=== PATIENT | female | born 1990 | race Caucasian/White ===

== ENCOUNTER 2017-06-26 14:08 | Emergency (ER) | payer MEDICARE ==
[~2017-06-26] VITALS: Ht 162.6 cm; Wt 81.6 kg
[2017-06-26 14:29] VITALS: BP_SYST 135
[2017-06-26 16:15] VITALS: BP_SYST 130
== END 2017-06-26 16:15 | disposition home or self-care (01) ==
LOC: SED 14:08
DX: J20.9 Acute bronchitis, unspecified (principal); E10.8 Type 1 diabetes mellitus with unspecified complications; R03.0 Elevated blood-pressure reading, without diagnosis of hypertension
CPT/HCPCS: 36415; 82962; 86710; 99284

== ENCOUNTER 2021-06-14 07:39 | Emergency (ER) | payer MEDICAID, MEDICARE ==
[~2021-06-14] VITALS: Ht 160 cm; Wt 81.6 kg
[2021-06-14 07:40] VITALS: BP_SYST 131
[2021-06-14 08:50] LABS: BASOPHILS % (AUTO) 0.6 % (0.0-2.0); EOSINOPHILS # (AUTO) 0.1 K/uL (0.0-0.4); EOSINOPHILS % (AUTO) 1.9 % (0.0-4.0); HEMOGLOBIN 14.5 g/dL (12.0-16.0); LYMPHOCYTES # (AUTO) 2.1 K/uL (1.0-5.5); LYMPHOCYTES % (AUTO) 32.5 % (20.5-51.5); MEAN CORPUSCULAR HEMOGLOBIN 30 pg (27-31); MEAN CORPUSCULAR HGB CONC 34 % (32-36); MEAN CORPUSCULAR VOLUME 86 fL (79.0-98.0); MONOCYTES # (AUTO) 0.4 K/uL (0.0-1.0); MONOCYTES % (AUTO) 6.8 % (1.7-9.3); NEUTROPHILS # (AUTO) 3.7 K/uL (1.8-7.7); NEUTROPHILS % (AUTO) 58.2 % (40.0-70.0); PLATELET COUNT (AUTO) 194 K/uL (130-430); RED BLOOD CELL COUNT(AUTO) 4.87 MIL/uL (4.2-6.2); RED CELL DISTRIBUTION WIDTH 12.5 % (9.0-15.0); WHITE BLOOD COUNT (AUTO) 6.4 K/uL (4.8-10.8)
[2021-06-14] MEDS ORDERED: NACL 0.9% 1,000 ML IV ONE ×2 (09:00→09:30)
[2021-06-14] MEDS ORDERED: KETOROLAC TROMETHAMINE 30 MG VIAL IVP ONE (09:00)
[2021-06-14 09:05] LABS: CALCIUM 8.6 mg/dL (8.4-11.0); CREATININE 0.76 mg/dL (0.55-1.30); POTASSIUM 3.8 mmol/L (3.5-5.1)
[2021-06-14 09:07] LABS: ALBUMIN 3.4 g/dL (3.4-4.8); TOTAL BILIRUBIN 0.3 mg/dL (0.0-1.0)
[2021-06-14] MEDS ORDERED: INSULIN REGULAR, HUMAN 10 UNITS/0.1 ML INJ IVP ONE (09:30)
[2021-06-14] MEDS ORDERED: ONDANSETRON HCL 4 MG/2 ML VIAL IVP ONE (10:15)
[2021-06-14 11:56] VITALS: BP_SYST 119
== END 2021-06-14 11:56 | disposition home or self-care (01) ==
LOC: SED 07:39
DX: E11.65 Type 2 diabetes mellitus with hyperglycemia (principal); Z88.1 Allergy status to other antibiotic agents
CPT/HCPCS: 36415; 80053; 81025; 82962; 83690; 85025; 96361; 96374; 96375; 99284; J1815; J1885; J2405; J7030